=== PATIENT | male | born 1970 | race African-American/Black ===

== ENCOUNTER 2020-10-28 14:44 | Emergency (ER) | payer SELFPAY ==
[~2020-10-28] VITALS: Ht 175.3 cm; Wt 101.0 kg
[2020-10-28] MEDS ORDERED: SODIUM CHLORIDE 0.9% 1,000 ML IV ONE (15:15)
[2020-10-28] MEDS ORDERED: ONDANSETRON HCL 4MG/2ML INJ IV STA (15:15)
[2020-10-28 15:30] LABS: BASOPHILS % 1.1 % (0.0-2.0); EOSINOPHILS % 1.6 % (0.0-5.0); HEMATOCRIT. 41.3 % (42.0-52.0); HEMOGLOBIN. 14.3 g/dL (14.0-18.0); LYMPHOCYTES % 34.2 % (20.0-50.0); MEAN CORPUSCULAR HEMOGLOBIN 31.7 pg (28.0-32.0); MEAN CORPUSCULAR VOLUME 91.4 fL (80.0-94.0); MEAN PLATELET VOLUME 8.2 fl (7.4-10.4); NEUTROPHILS % 51.1 % (40.0-76.0); PLATELET 295 x1000/uL (130-400); RED BLOOD CELL COUNT 4.52 mill/uL (4.7-6.1); RED CELL DISTRIBUTION WIDTH 13.3 % (11.6-14.6)
[2020-10-28 15:37] LABS: CHLORIDE 108 mEq/L (98-107)
[2020-10-28 15:41] LABS: INR 1.1; PROTHROMBIN TIME 11.9 sec (9.6-11.0)
[2020-10-28] MEDS ORDERED: LIDOCAINE HCL 4% (40MG/ML) SOLN 50ML TOP ONE (15:45)
[2020-10-28] MEDS ORDERED: HYDROCODONE/ACETAMINOPHEN 5/325MG TABLET PO ONE (15:45)
[2020-10-28] MEDS ORDERED: LIDOCAINE HCL 1% 20ML VIAL (Pyxis) INJ INFIL ONE ×2 (16:00→16:30)
[2020-10-28] MEDS ORDERED: LIDOCAINE HCL/PF 1% 2ML VIAL INH NR (16:30)
[2020-10-28] MEDS ORDERED: TRAZ-251 MT (17:32)
[2020-10-28 18:05] VITALS: BP 152/52
== END 2020-10-28 18:07 | disposition home or self-care (01) ==
LOC: ER 14:44
DX: T54.3X1A Toxic effect of corrosive alkalis and alkali-like substances, accidental (unintentional), initial encounter (principal); J45.909 Unspecified asthma, uncomplicated; Y92.9 Unspecified place or not applicable
CPT/HCPCS: 36415; 74022; 80053; 83605; 83690; 84484; 85025; 85610; 93005; 94640; 96361; 96374; 99285; J2405; J3490; J7030; Z7610